=== PATIENT | female | born 1975 | race Caucasian/White ===

== ENCOUNTER → 2020-07-12 | Outpatient (CLI) | payer BC | LOC: RAD 14:38 | DX: M25.512 Pain in left shoulder (principal); M47.812 Spondylosis without myelopathy or radiculopathy, cervical region | CPT/HCPCS: 72050; 73030 ==

== ENCOUNTER → 2020-07-26 | Outpatient (CLI) | payer BC | LOC: KOH-I 10:15 | DX: M47.22 Other spondylosis with radiculopathy, cervical region (principal); M47.812 Spondylosis without myelopathy or radiculopathy, cervical region; M50.222 Other cervical disc displacement at C5-C6 level; M48.02 Spinal stenosis, cervical region; M48.03 Spinal stenosis, cervicothoracic region | CPT/HCPCS: 72141 ==

== ENCOUNTER → 2020-12-27 | Outpatient (CLI) | payer BC | LOC: KOH-I 11:00 | DX: M54.2 Cervicalgia (principal); M47.812 Spondylosis without myelopathy or radiculopathy, cervical region | CPT/HCPCS: 72141 ==